=== PATIENT | female | born 1935 | race Caucasian/White ===

== ENCOUNTER 2016-09-08 08:32 | Day surgery (SDC) | payer MEDICARE, BC ==
[2016-09-08] MEDS ORDERED: Lactated Ringers 1,000 ML IV SCH (08:45)
[2016-09-08] MEDS ORDERED: Propofol 200 MG/20 ML SDV IV ONE (10:30)
--- NOTE | 2016-09-08 11:03 | PCM.OPNOTE ---
- General Post-Op/Procedure Note Date of Surgery/Procedure: 09/08/16 Operative Procedure(s): c scope with bx Findings: internal hemorrhoids rectal polyps x2 Pre Op Diagnosis: hematochezia Post-Op Diagnosis: internal hemorrhoids. rectal polyps x2 Anesthesia Technique: MAC Primary Surgeon: Dave Mccoy Anesthesia Provider: Thomas Muniz Pathology: rectal polyps x2 Complications: None Condition: Good Free Text/Narrative:: see dictation
--- NOTE | 2016-09-08 11:23 | OR ---
DATE OF OPERATION: 09/08/2016 SURGEON: Dave Mccoy MD PROCEDURE: Colonoscopy with cold forceps biopsy. PREOPERATIVE DIAGNOSIS: Hematochezia. POSTOPERATIVE DIAGNOSIS: Rectal polyp x2 and internal hemorrhoids. INDICATIONS FOR PROCEDURE: This is an 80-year-old white female referred with a history of hematochezia. She was offered and accepted colonoscopy. DESCRIPTION OF OPERATION: After an excellent IV sedation was administered, digital rectal exam was performed. No marked abnormality was noted. The flexible colonoscope was inserted and advanced to the cecum without difficulty. The following findings were noted. Prep was excellent. The ascending colon, unremarkable. Transverse colon, unremarkable. Descending colon, unremarkable. Sigmoid, unremarkable. Rectum, approximately 5 cm above the anal verge, two small polyps biopsied with cold biopsy forceps and sent for permanent. Retroflexion of the scope revealed internal hemorrhoids and photo was done. Colon was deflated, scope was removed. The patient tolerated the procedure well and was taken to recovery in good condition. /[id number] /MODL
[2016-09-08 11:47] VITALS: BP 127/51
== END 2016-09-08 12:05 | disposition home or self-care (01) ==
LOC: FB.SDS 08:32
PROVIDERS: ATTEND Surgery
DX: K62.1 Rectal polyp (principal); K64.8 Other hemorrhoids; I10 Essential (primary) hypertension; K21.9 Gastro-esophageal reflux disease without esophagitis; E78.1 Pure hyperglyceridemia; Z88.8 Allergy status to other drugs, medicaments and biological substances; Z79.899 Other long term (current) drug therapy; Z90.49 Acquired absence of other specified parts of digestive tract; Z90.721 Acquired absence of ovaries, unilateral; Z98.890 Other specified postprocedural states; J30.2 Other seasonal allergic rhinitis
CPT/HCPCS: 00810; 45380; 88305; J2704; J7120